=== PATIENT | female | born 1950 | race Caucasian/White ===

== ENCOUNTER → 2018-09-28 | Outpatient (CLI) | payer MEDICARE ==
--- NOTE | 2018-09-28 15:04 | KCIC ---
EXAM: Lumbar spine MRI without contrast. HISTORY: Back pain and lower extremity radiculopathy. TECHNIQUE: Multiplanar, multisequence magnetic resonance imaging of the lumbar spine was performed without contrast. COMPARISON: None. FINDINGS: There is a suspected transitional lumbosacral segment with rudimentary disc. This is considered a partially sacralized L5 segment for this dictation. Based on this numbering system, there is grade 1 anterolisthesis of L4 on L5, measuring 7 mm. There is mild retrolisthesis of L2 on L3. There is mild scoliosis. There is endplate remodeling at multiple levels. There are few small endplate Schmorl's nodes. There are few osseous hemangiomas. There is no suspicious osseous lesion. The conus terminates at L1. At L1-L2, there is a shallow left paracentral to foraminal disc protrusion and annular tear superimposed on a disc bulge. There is minimal left facet arthropathy. There is mild bilateral foraminal stenosis. At L2-L3, there is a shallow right foraminal to extra foraminal disc protrusion superimposed on a disc bulge and endplate remodeling. There is mild bilateral facet arthropathy. There is mild retrolisthesis. There is mild right foraminal stenosis. At L3-L4, there is a broad-based posterior central disc protrusion and annular tear. There is also a left foraminal to extra foraminal disc protrusion. These are superimposed on a disc bulge and endplate remodeling. There is severe facet arthropathy. There is hypertrophy of the ligamentum flavum. There is mild right and moderate left foraminal stenosis with abutment of the exiting left greater than right L3 nerve roots. There is mild to moderate central canal stenosis. At L4-L5, there is a broad-based posterior central disc protrusion and annular tear with 4 mm superior extrusion. There is also a right foraminal to extra foraminal disc protrusion with slight superior extrusion. These are superimposed on a disc bulge and endplate osteophytosis. There is marked bilateral facet arthropathy. There is hypertrophy of the ligament of flavum. There is grade 1 anterolisthesis. There is severe right and [id number] left foraminal stenosis with abutment of the exiting right greater than left L4 nerve root. There is moderate to severe central canal stenosis. At L5-S1, there is a rudimentary disc at this level. There is sacralization of the left aspect of the L5 segment with articulation with the underlying sacrum, a normal variant. There is no stenosis. IMPRESSION: 1. Multilevel degenerative change throughout the lumbar spine, described in detail above. This results in mild bilateral foraminal stenosis at L1-L2, mild right foraminal stenosis at L2-L3, mild right and moderate left foraminal and [id number] central canal stenosis at L3-L4 and severe right and mild to moderate left foraminal and moderate to severe central canal stenosis at L4-L5. 2. Grade 1 anterolisthesis of L4 on L5. 3. Mild lumbar scoliosis. 4. Transitional lumbosacral segment, considered a partially sacralized L5 segment for this dictation. Electronically signed by: Rozina Powell MD (09/28/2018 3:00 PM) [id number]
== END | disposition home or self-care (01) ==
LOC: KCIC MRI 13:47
PROVIDERS: ATTEND Anesthesiology Pain Medicine
DX: M47.896 Other spondylosis, lumbar region (principal); M48.061 Spinal stenosis, lumbar region without neurogenic claudication; M41.86 Other forms of scoliosis, lumbar region; M43.16 Spondylolisthesis, lumbar region; M51.26 Other intervertebral disc displacement, lumbar region; M43.27 Fusion of spine, lumbosacral region
CPT/HCPCS: 72148

== ENCOUNTER → 2018-12-15 | Outpatient (CLI) | payer MEDICARE ==
--- NOTE | 2018-12-15 09:57 | KCIC ---
EXAM: Thoracic spine MRI without contrast. HISTORY: Radiculopathy. TECHNIQUE: Multiplanar, multisequence magnetic resonance imaging of the thoracic spine was performed without contrast. COMPARISON: Lumbar spine MRI dated 09/28/2018. FINDINGS: There is no significant thoracic listhesis. The thoracic vertebral bodies are normal in height. No suspicious osseous lesion is seen. There is endplate remodeling at multiple levels. There are multiple thoracic endplate Schmorl's nodes. No thoracic spinal cord lesion is seen. There is no thoracic disc protrusion. There is minimal facet arthropathy at multiple thoracic levels. There is no significant thoracic foraminal or central canal stenosis. Limited evaluation of the cervical and lumbar spine demonstrate grade 1 anterolisthesis of L4 on L5. There is also mild listhesis at multiple cervical levels. There are degenerative changes involving the cervical and lumbar spine which are not formally assessed on this exam. IMPRESSION: 1. Minimal multilevel degenerative change within the thoracic spine. There is no acute finding or significant thoracic foraminal or central canal stenosis. 2. Multilevel degenerative change within the lumbar spine, not formally assessed on this exam. Please refer to the separate report for the lumbar spine MRI dated 09/28/2018 for lumbar spine findings. 3. Multilevel degenerative change within the cervical spine, also not formally assessed on this exam. Electronically signed by: Rozina Powell MD (12/15/2018 9:55 AM) [id number]
== END | disposition home or self-care (01) ==
LOC: KCIC MRI 09:10
PROVIDERS: ATTEND Nurse Practitioner
DX: M47.24 Other spondylosis with radiculopathy, thoracic region (principal); M47.896 Other spondylosis, lumbar region; M47.892 Other spondylosis, cervical region; M43.16 Spondylolisthesis, lumbar region
CPT/HCPCS: 72146

== ENCOUNTER → 2021-10-24 | Outpatient (CLI) | payer MEDICARE ==
--- NOTE | 2021-10-24 15:23 | KCIC ---
EXAM: Lumbar spine MRI without contrast. HISTORY: Lumbar radiculitis TECHNIQUE: Multiplanar, multisequence magnetic resonance imaging of the lumbar spine was performed wi thout contrast. COMPARISON: 09/28/2018 FINDINGS: There is a transitional lumbosacral segment. This is considered a partially sacralized L5 s egment with rudimentary L5-S1 disc for this dictation. This corresponds with the numbering system uti lized on the comparison exam. Based on this numbering system, there is 6 mm grade 1 anterolisthesis o f L4 on L5. There is 2 mm grade 1 anterolisthesis of L3 on L4. There is degenerative endplate remodel ing with disc space narrowing and osteophytosis primarily at L4-L5. There is no suspicious osseous le mauro. There are few osseous hemangiomas. There is no fracture. The conus terminates at L1. At L1-L2, there is a shallow left lateral recess to foraminal disc protrusion superimposed on a disc bulge and endplate remodeling. There is mild left facet arthropathy. There is mild left foraminal neli nosis. At L2-L3, there are shallow bilateral lateral recess disc protrusion superimposed on a disc bulge and endplate remodeling. There is mild bilateral facet arthropathy. There is mild bilateral foraminal st enosis. There is narrowing of the lateral recesses. At L3-L4, there is a left foraminal disc protrusion superimposed on a disc bulge and endplate remodel ing. There is moderate to severe facet arthropathy. There is hypertrophy of the ligamentum flavum. Th ere is grade 1 anterolisthesis. There is mild bilateral foraminal stenosis. There is moderate central canal stenosis. At L4-L5, there is a broad-based right paracentral to extra foraminal disc protrusion and annular tea r with 4 mm superior extrusion and there is a left lateral recess to foraminal disc protrusion and an nular tear. These are superimposed on a disc bulge and endplate osteophytosis. There is severe bilate ral facet arthropathy. There is hypertrophy of the ligament flavum. There is grade 1 anterolisthesis. There is severe right and moderate left foraminal stenosis. There is severe central canal stenosis. At L5-S1, there is no stenosis. IMPRESSION: 1. Multilevel degenerative change involving the lumbar spine, described in detail above. This results in stenosis at multiple levels. The central canal stenosis and foraminal stenosis is most significan t at L4-L5. These findings are not significantly changed compared to the prior exam, allowing for dif ferences in imaging technique. 2. Lumbar scoliosis and multilevel listhesis. Electronically signed by: Rozina Powell MD (10/24/2021 3:21 PM) [id number]
== END ==
LOC: KCIC MRI 13:39
PROVIDERS: ATTEND Anesthesiology Pain Medicine
DX: M47.26 Other spondylosis with radiculopathy, lumbar region (principal); M51.27 Other intervertebral disc displacement, lumbosacral region; M51.37 Other intervertebral disc degeneration, lumbosacral region; M48.07 Spinal stenosis, lumbosacral region; M48.8X6 Other specified spondylopathies, lumbar region; M25.78 Osteophyte, vertebrae
CPT/HCPCS: 72148